=== PATIENT | female | born 1960 | race Caucasian/White ===

== ENCOUNTER 2023-09-10 00:56 | Day surgery (SDC) | payer OTHER, SELFPAY ==
[2023-08-28 13:05] VITALS: BMI 27.2
--- NOTE | 2023-09-08 09:52 | SUR.PREOP ---
Patient called regarding upcoming procedure. Message left regarding preop instructions, appointment times, and procedure prep. Call back number left in message.
[2023-09-10 06:08] VITALS: BMI 28.4
[2023-09-10 06:15] VITALS: BP 129/74; PULSE 74; RESP 16; TEMP 36.3; O2SAT 100
[2023-09-10] MEDS: LACTATED RINGERS 1,000 ML 150 ML IV CONT (06:38)
--- NOTE | 2023-09-10 07:14 | WPDANESEPPF ---
Anes - Initial Pre Proc Eval Procedure: Operation Date: 09/10/23 07:30 Proposed Procedures p Screening Colonoscopy - Nick De Santiago MD Date/Time: 09/10/23 07:14 Surgeon: Nick De Santiago MD Pre Op Diagnosis: neoplasm screening Patient Data Age: 62 Gender: F Height: 1.63 m Weight: 75.2 kg Last Vital Signs Temp 36.3 C L 09/10/23 06:15 Pulse 74 09/10/23 06:15 Resp 16 09/10/23 06:15 BP 129/74 09/10/23 06:15 Pulse Ox 100 09/10/23 06:15 O2 Del Method Room Air 09/10/23 06:15 Allergies Allergy/AdvReac Type Severity Reaction Status Date / Time Penicillins Allergy Unknown Unknown Verified 09/10/23 06:19 Home Medications Medication Instructions Recorded Confirmed Type estradiol 0.5 mg tablet (Estrace) 0.5 mg PO DAILY #100 tabs 08/24/23 09/10/23 Rx Patient hx anesthesia problems: none Family hx anesthesia problems: none Results Review: All pre-operative results and documents have been reviewed as part of the pre-operative evaluation. [facility] Past Medical History Medical History Anemia, unspecified Overweight Surgical History Surgical History H/O: hysterectomy 2019 Family History Family History Father Depression Family history of cardiovascular disease Acute myocardial infarction Sibling Hypertension Family history of elevated blood lipids Mother Family history of rheumatoid arthritis Grandparent Family history of malignant neoplasm Other Family history of hypercholesterolemia Social History Social History Smoking status: Never smoker Alcohol intake: current Drinks per week: 4 Living arrangements: with family Spiritual care concerns: No Anes - Eval Final PreProcedure Day of Procedure 09/10/23 07:14 Patient weight: overweight Heart: regular rate and rhythm Lungs: clear to auscultation Airway: Mallampati scale class II Neurological: alert and oriented Last oral intake: >/= 8 hours ASA classification: II Emergent: no Anesthetic plan: proceed Anesthesia type and monitoring: general GIVS and standard monitoring Results Review: All pre-operative results and documents have been reviewed as part of the pre-operative evaluation. Informed Consent: The patient's anesthetic plan and its attendant risks and benefits were discussed with the patient/family/POA. Questions were solicited and answers provided to the satisfaction of the patient/family/POA.
--- NOTE | 2023-09-10 07:46 | PM.HPGS ---
History of Present Illness History of Present Illness Consent: Risks, benefits, and alternatives have been discussed and questions answered. Patient agrees to proceed with procedure. Chief complaint: neoplasm screening Narrative: Mari Oliver is a 62 year old female Presents for screening colonoscopy. Patient's current weight appetite and bowel movements are normal. Patient denies abdominal pain. she has had no bleeding. Patient's previous colonoscopy 10 years ago was unremarkable. Review of Systems Review of Systems: Review of systems noncontributory. [facility] Past Medical History Medical History Anemia, unspecified Overweight Surgical History Surgical History H/O: hysterectomy 2018 Family History Family History Father Depression Family history of cardiovascular disease Acute myocardial infarction Sibling Hypertension Family history of elevated blood lipids Mother Family history of rheumatoid arthritis Grandparent Family history of malignant neoplasm Other Family history of hypercholesterolemia Social History Social History Smoking status: Never smoker Alcohol intake: current Drinks per week: 4 Living arrangements: with family Spiritual care concerns: No Meds Home Medications and Allergies Home Medications Medication Instructions Recorded Confirmed Type estradiol 0.5 mg tablet (Estrace) 0.5 mg PO DAILY #100 tabs 08/24/23 09/10/23 Rx Allergies Allergy/AdvReac Type Severity Reaction Status Date / Time Penicillins Allergy Unknown Unknown Verified 09/10/23 06:19 Vital Signs Vital Signs - 24 hr 09/10/23 06:15 Temperature 97.4 F L Pulse Rate 74 Respiratory Rate 16 Blood Pressure 129/74 Pulse Oximetry 100 Oxygen Delivery Room Air Exam Narrative: Physical exam reveals patient to be alert. Vital signs stable. HEENT exam is unremarkable. Patient is anicteric. Lungs are clear to auscultation and percussion. Heart is without murmur or extra sounds. Abdominal exam bowel sounds are present soft nontender with no organomegaly. Digital external rectal exam normal. Assessment and Plan Assessment and plan (1) Encounter for screening colonoscopy: Code(s): Z12.11 - Encounter for screening for malignant neoplasm of colon Status: Acute Assessment and Plan: Patient appears be at average risk for colon polyps. Further recommendations may be given after colonoscopy.
[2023-09-10 07:50] VITALS: BP 109/70; PULSE 76; RESP 20; O2SAT 99
[2023-09-10 08:00] VITALS: BP 113/79; PULSE 82; RESP 20; O2SAT 100
[2023-09-10 08:10] VITALS: BP 116/80; PULSE 78; RESP 18; O2SAT 100
== END 2023-09-10 08:15 | disposition home or self-care (01) ==
PROVIDERS: PCP Emergency Medicine; Visit Provider Internal Medicine Gastroenterology
PROC: 0DJD8ZZ Inspection of Lower Intestinal Tract, Via Natural or Artificial Opening Endoscopic (ICD-10-PCS; CPT 45378; principal; 2023-09-10 07:30)
DX: Z12.11 Encounter for screening for malignant neoplasm of colon (principal); K64.8 Other hemorrhoids; D64.9 Anemia, unspecified; Z82.49 Family history of ischemic heart disease and other diseases of the circulatory system; Z80.9 Family history of malignant neoplasm, unspecified
CPT/HCPCS: 45378; J2704; J7120

== ENCOUNTER 2023-11-04 07:46 | Outpatient (CLI) | payer OTHER, SELFPAY ==
--- NOTE | ~2023-11-04 | DEXA_ITS ---
Bone Density Report Name: BREE BRAR Age: 63 Sex: Female Ethnicity: White Date of : 1960 Indication: postmenopausal; screening for osteoporosis; parental hip fracture; height loss; prior fracture; hysterectomy; Referring Provider: JOSE ANTONIO TOWNSEND Study: Bone densitometry was performed. Exam Date: November 04, 2023 Accession number: [id number] Bone Density: Region BMD T-score Z-score Classification AP Spine(L1-L4) 1.131 0.8 2.5 Normal Femoral Neck (Left) 0.744 -0.9 0.6 Normal Total Hip (Left) 0.869 -0.6 0.6 Normal Femoral Neck (Right) 0.786 -0.6 0.9 Normal Total Hip (Right) 0.909 -0.3 1.0 Normal Total Hip Mean 0.889 -0.5 0.8 Normal World Health Organization criteria for BMD impression classify patients as: Normal (T-score at or above -1.0), Osteopenia (T-score between -1.0 and -2.5), or Osteoporosis (T-score at or below -2.5). 10-year Fracture Risk: FRAX not reported because: All T-scores for Spine Total, Hip Total, Femoral Neck at or above -1.0 Clinical Information Provided by Patient: Has had a low trauma fracture Parent has had a hip fracture Has the following medical conditions: Hysterectomy Patient maximum height was 65.0 Menopause Age: 53 No regular weight bearing exercise Drinks caffeinated beverages Onset of menses at age 11 Number of children 2 Impression: The patient has normal bone mass. The patient has risk factors, including: parental hip fracture, previous fracture. Discussion: BONE DENSITY IS ABOVE THE MINIMUM DESIRABLE LEVEL AT ALL SKELETAL SITES TESTED. This patient?s bone mineral density is above the minimum desirable level (T-score -1.0 or better) at all sites measured. The patient should follow a healthful lifestyle (good nutrition with adequate calcium and vitamin D, and appropriate weight-bearing exercise). Follow-Up: Consider repeating this study in 5 years or sooner if there is some new clinical indication. Reported by: [facility] on 11/04/2023 8:31:00 AM. Reviewed, dictated and finalized at location AGato WILSON
--- NOTE | ~2023-11-04 | MM_ITS ---
EXAMINATION: MM screening [facility] BI w dinorah HISTORY: Screening mammogram TECHNIQUE: Craniocaudal and mediolateral oblique 3-D tomosynthesis images were obtained and synthetic 2-D images were generated. CAD analysis was submitted and interpreted. COMPARISON: 08/17/2017, 02/10/2013, 05/09/2009 BREAST PARENCHYMAL COMPOSITION: The breasts are heterogeneously dense, which may obscure small masses . FINDINGS: No suspicious mass, calcification, or architectural distortion are identified in either kathy ast to suggest malignancy. There has been no suspicious interval change. IMPRESSION: 1. No mammographic evidence of malignancy. 2. Recommend routine screening mammography in one year. BI-RADS Category 1: Negative Reviewed, dictated and finalized at location A. F DEVELOPMENT OFFICER
== END 2023-11-04 07:47 | disposition home or self-care (01) ==
LOC: ANHIMG 07:48
PROVIDERS: PCP Emergency Medicine; Visit Provider Nurse Practitioner Family
DX: Z12.31 Encounter for screening mammogram for malignant neoplasm of breast (principal); Z13.820 Encounter for screening for osteoporosis
CPT/HCPCS: 77063; 77067; 77080

== ENCOUNTER 2024-02-03 12:39 | Outpatient (CLI) | payer OTHER, SELFPAY | END 2024-02-03 12:40 | disposition home or self-care (01) | LOC: ANHAUDASC 12:42 | PROVIDERS: PCP Emergency Medicine; Visit Provider Otolaryngology | DX: H73.811 Atrophic flaccid tympanic membrane, right ear (principal); H90.42 Sensorineural hearing loss, unilateral, left ear, with unrestricted hearing on the contralateral side | CPT/HCPCS: 92557; 92567 ==

== ENCOUNTER 2025-07-04 10:17 | Outpatient (CLI) | payer OTHER, SELFPAY ==
--- NOTE | ~2025-07-04 | MM_ITS ---
EXAMINATION: MM screening [facility] BI w dinorah HISTORY: Screening mammogram TECHNIQUE: Craniocaudal and mediolateral oblique 3-D tomosynthesis images were obtained and synthetic 2-D images were generated. CAD analysis was submitted and interpreted. COMPARISON: Mammograms from 11/04/2023 and 08/17/2017 BREAST PARENCHYMAL COMPOSITION: The breasts are heterogeneously dense, which may obscure small masses. FINDINGS: RIGHT BREAST: There is no evidence of suspicious mass, calcification, or architectural distortion to suggest malignancy. There has been no significant interval change. LEFT BREAST: Interval increase in the number of indeterminate calcifications in the upper outer quadrant of the left breast, posterior depth. No suspicious mass or architectural distortion. IMPRESSION: 1. Interval increase in number of indeterminate calcifications in the upper- outer quadrant of the left breast, posterior depth. This study is incomplete. A diagnostic left breast mammogram is recommended. 2. No mammographic evidence for malignancy in the right breast. BI-RADS Category 0: Incomplete: Needs additional imaging evaluation. Reviewed, dictated and finalized at location Q. IMPRESSION: 1. Interval increase in number of indeterminate calcifications in the upper-out er quadrant of the left breast, posterior depth. This study is incomplete. A di agnostic left breast mammogram is recommended. 2. No mammographic evidence for malignancy in the right breast. BI-RADS Category 0: Incomplete: Needs additional imaging evaluation.
== END 2025-07-04 10:18 | disposition home or self-care (01) ==
PROVIDERS: PCP Family Medicine; Visit Provider Family Medicine
DX: R92.8 Other abnormal and inconclusive findings on diagnostic imaging of breast (principal); Z12.31 Encounter for screening mammogram for malignant neoplasm of breast
CPT/HCPCS: 77063; 77067

== ENCOUNTER 2025-07-04 10:54 | Outpatient (CLI) | payer OTHER, SELFPAY ==
--- NOTE | ~2025-07-04 | XR_ITS ---
XR knee RT 3V 07/04/2025 11:08 Indication: Right knee pain Procedure: 3 views right knee Comparison: No prior studies for comparison. Findings: There is mild-moderate tricompartment osteoarthritis of the right knee. No acute fracture, subluxation or dislocation. No significant joint effusion. Impression: 1: Mild-moderate tricompartment osteoarthritis of the right knee. Reviewed, dictated and finalized at location O. Impression: 1: Mild-moderate tricompartment osteoarthritis of the right knee.
== END 2025-07-04 10:55 | disposition home or self-care (01) ==
LOC: MICIMG 10:55
PROVIDERS: PCP Family Medicine; Visit Provider Family Medicine
DX: M17.11 Unilateral primary osteoarthritis, right knee (principal)
CPT/HCPCS: 73562

== ENCOUNTER 2025-08-07 12:03 | Outpatient (CLI) | payer OTHER, SELFPAY ==
--- NOTE | ~2025-08-07 | MM_ITS ---
EXAMINATION: MM diagnostic [facility] LT w dinorah INDICATION: 64-year old female; BI-RADS 0, callback from screening to evaluate interval increasing indeterminate calcifications in the upper outer left breast at posterior depth. COMPARISON: 07/04/2025 through 05/09/2009 TECHNIQUE: Digital breast magnification CC and ML views of LEFT breast were obtained. FINDINGS: The breasts are heterogeneously dense, which may obscure small masses. A linear group of pleomorphic microcalcifications that spans 0.4 cm seen in superior lateral in the posterior third of the LEFT breast correlates to the area of concern. There are several other calcifications seen in the same general area of the benign microcyst type calcifications. IMPRESSION: Suspicious LEFT breast calcifications in the superior lateral location. Biopsy is recommended. RECOMMENDATION: Stereotactic biopsy of superior lateral LEFT breast calcifications. BI-RADS 4, SUSPICIOUS Reviewed, dictated and finalized at location B. IMPRESSION: Suspicious LEFT breast calcifications in the superior lateral locat ion. Biopsy is recommended. RECOMMENDATION: Stereotactic biopsy of superior lateral LEFT breast calcifications. BI-RADS 4, SUSPICIOUS
== END 2025-08-07 12:04 | disposition home or self-care (01) ==
LOC: ANHFOHIMG 12:04
PROVIDERS: PCP Family Medicine; Visit Provider Family Medicine
DX: R92.1 Mammographic calcification found on diagnostic imaging of breast (principal); Q83.9 Congenital malformation of breast, unspecified
CPT/HCPCS: 77061; 77065; G0279

== ENCOUNTER 2025-08-11 08:42 | Outpatient (CLI) | payer OTHER, SELFPAY ==
--- NOTE | ~2025-08-11 | MM_ITS ---
AutoText: MM stereotactic bx LT, MM stereotactic specimen LT CLINICAL HISTORY: 64-year-old female with suspicious left breast calcifications or presents for stereotactic core needle biopsy procedure. PROCEDURE: Stereotactic breast biopsy. The patient was brought into the stereotactic suite. A time-out procedure was performed. Preliminary images of the left breast were obtained to localize the calcifications. The area was then prepped and draped in the usual sterile fashion. 1% lidocaine was administered to the superficial soft tissues and 1% lidocaine without epinephrine was administered to the deeper soft tissues for local anesthesia. A juli was made in the skin and the 9 gauge Brevera biopsy needle was inserted through the juli and localized to the calcifications with confirmation by mammography. Multiple biopsy specimens were obtained. Images of the biopsy specimens demonstrate numerous calcifications corresponding with the suspicious calcifications seen on the mammogram. A butterfly Crosby Nick was placed in the biopsy site at the end of the procedure. Pressure was held at the site of biopsy and entry site for the needle until hemostasis was achieved. The patient tolerated the procedure well with no immediate post procedure complications. The biopsy specimens were sent to pathology for evaluation. Mammograms of the left breast in the craniocaudal and true lateral projections demonstrate the microclip in good position in the biopsy site. IMPRESSION: Technically successful stereotactic biopsy of left breast calcifications. The patient tolerated the procedure well with no immediate post procedure complications. Pathology report is pending. Reviewed, dictated and finalized at location B. IMPRESSION: Technically successful stereotactic biopsy of left breast calcifica tions. The patient tolerated the procedure well with no immediate post procedur e complications. Pathology report is pending.
--- NOTE | 2025-08-11 10:49 | S_PTH ---
PATIENT: Mari Oliver LOC: [facility] U#:[id number] AGE/SX: 64/F ROOM: RE08/11/[address]: Lachelle Mejia MD : 1960 BED: DIS: 08/11/2025 SPEC #: [id number] RECD: 08/11/25 11:42 STATUS: DAVIE KRUSE #: [id number] BRAD: 08/11/25 10:[address]: Lachelle Mejia DEPT: [facility] Surgical RECD BY: Kathryn Mandujano ENTERED: 08/11/25 12:00 SP TYPE: Surgical OTHR DR: Ludin Zayas MD Tissues: A - Breast Biopsy B - Breast Biopsy C - Breast Biopsy D - Breast Biopsy E - Breast Biopsy F - Breast Biopsy G - Breast Biopsy H - Breast Biopsy I - Breast Biopsy J - Breast Biopsy K - Breast Biopsy L - Breast Biopsy Procedures: P63 Hematoxylin and Eosin Stain E-Cadherin Gross and Microscopic Level 4
== END 2025-08-11 08:43 | disposition home or self-care (01) ==
PROVIDERS: PCP Family Medicine; Visit Provider Surgery
DX: R92.1 Mammographic calcification found on diagnostic imaging of breast (principal); R92.8 Other abnormal and inconclusive findings on diagnostic imaging of breast; N62 Hypertrophy of breast
CPT/HCPCS: 19081; 88305; 88342

== ENCOUNTER 2025-08-27 13:45 | Emergency (ER) | payer OTHER, SELFPAY ==
[2025-08-27 13:52] VITALS: BP 137/79; PULSE 79; RESP 16; TEMP 36.3; O2SAT 100
--- NOTE | 2025-08-27 13:52 | ED.GENADULT ---
HPI - General Adult General Chief complaint: Upper Respiratory Infection Stated complaint: Cold Symptoms Time Seen by Provider: 08/27/25 13:53 Source: patient Mode of arrival: ambulatory Limitations: no limitations Related Data Allergies Allergy/AdvReac Type Severity Reaction Status Date / Time No Known Allergies Allergy Verified 08/09/25 07:57 Review of Systems Review of Systems: CONSTITUTIONAL: Denies fever, chills, or sweats. EYES: Denies visual changes, redness, or discharge. ENT: Denies rhinorrhea, congestion, sore throat, or otalgia. CARDIOVASCULAR: Denies chest pain, palpitations, or edema. RESPIRATORY: Denies cough or dyspnea. GASTROINTESTINAL: Denies abdominal pain, nausea, vomiting, or diarrhea. GENITOURINARY: Denies dysuria or hematuria. SKIN: Denies rash or itching. MUSCULOSKELETAL: Denies back pain, joint pain, or myalgia. NEUROLOGIC: Denies headache, numbness, or weakness. PSYCHIATRIC: Denies anxiety or depression. [facility] Past Medical History Medical History Overweight Anemia, unspecified Surgical History Surgical History H/O: hysterectomy 2019 Family History Family History Father Depression Family history of cardiovascular disease Acute myocardial infarction Sibling Hypertension Family history of elevated blood lipids Mother Family history of rheumatoid arthritis Grandparent Family history of malignant neoplasm Other Family history of hypercholesterolemia Social History Social History Social History: Caffeine-diet soda Smoking status: Former smoker Tobacco type: cigarettes Alcohol intake: current Drinks per week: 4 Substance use: never Substance use type: does not use Do You Feel Safe in your Home?: Yes Lack of Transportation: No Lack of Food: Never True Current Housing: I Have Housing Concerned About Future Housing: No Difficulty Paying Gas/Electric Bills: No Difficulty Paying for Meds: No Currently Unemployed: No Education: Master's Degree or Higher Difficulty w/ Childcare or Family Care: No Living arrangements: with family Spiritual care concerns: No Comments At the time of my signature I agree with nursing past medical history, surgical, social, and family history. There is no relevant family history pertinent to the presenting complaint. Exam Narrative: GENERAL: Well-appearing, well-nourished, and in no acute distress. HEAD: Normocephalic, atraumatic. EYES: PERRLA and EOMI. ENT: Nares clear, no rhinorrhea or epistaxis. Mucous membranes moist. NECK: Supple. No lymphadenopathy CHEST: Clear to auscultation. No respiratory distress. HEART: Regular rate and rhythm. No murmur heard. Normal peripheral pulses. ABDOMEN: Soft, nontender, nondistended, normal active bowel sounds. EXTREMITIES: Normal range of motion. No edema. SKIN: Warm, dry, no rash. NEURO: No focal deficits. Alert and oriented x3. Course Course Level of Care: Express Care Visit Reevaluation(s) Reevaluation #1: Re-evaluated patient after point of care I would come back showing negative results for COVID, influenza and strep. Discussed with patient we will sign off her strep swab to the lab for culture. If anything comes back positive we will call her antibiotics at that time. Discussed with patient this is most likely viral URI and she can you take nuhe-ldj-[id number] medications help with symptoms she can also increase her vitamin such as vitamin-C, vitamin D and increase her zinc to help her fight the virus better. Discussed with patient she can also use hot tea and honey to help sore throat symptoms. Patient verbalized understanding denies any other questions or concerns at this time. Date: 08/27/25 Time: 14:31 Vital Signs Vital signs: Vital Signs Temperature 36.3 C L 08/27/25 13:52 Pulse Rate 79 08/27/25 13:52 Respiratory Rate 16 08/27/25 13:52 Blood Pressure 137/79 08/27/25 13:52 Pulse Oximetry 100 08/27/25 13:52 Temperature 36.3 C L 08/27/25 13:52 Pulse Rate 79 08/27/25 13:52 Respiratory Rate 16 08/27/25 13:52 Blood Pressure 137/79 08/27/25 13:52 Pulse Oximetry 100 08/27/25 13:52 Vital signs reviewed. Medical Decision Making Differential Diagnosis Differential Diagnosis: Differential diagnosis: Allergic rhinitis, chronic sinusitis, tonsillitis, acute sinusitis, infectious mononucleosis, seasonal influenza, pertussis, diphtheria, meningococcal disease, viral syndrome, viral bronchitis, RSV, COVID-19 Vital Signs Vital Signs: Vital Signs Temperature 36.3 C L 08/27/25 13:52 Pulse Rate 79 08/27/25 13:52 Respiratory Rate 16 08/27/25 13:52 Blood Pressure 137/79 08/27/25 13:52 Pulse Oximetry 100 08/27/25 13:52 Temperature 36.3 C L 08/27/25 13:52 Pulse Rate 79 08/27/25 13:52 Respiratory Rate 16 08/27/25 13:52 Blood Pressure 137/79 08/27/25 13:52 Pulse Oximetry 100 08/27/25 13:52 Lab Data Labs: Lab Results 08/27/25 Range/Units 14:26 POC Influenza A Ag Negative (Negative) POC Influenza B Ag Negative (Negative) POC SARS CoV-2 Ag Negative (Negative) POC Grp A Strep Screen Negative (Negative) Critical Care Time Critical Care Time Critical Care Time: No Discharge Plan Discharge Clinical Impression: Viral URI Patient Disposition: Home Condition: Stable Instructions: Antibiotic Form, Viral Syndrome (ED) Additional Instructions: Viral illness may last between 7-12days; antibiotic is NOT recommended at this time. Recommend antihistamine such as Benadryl at night time and Claritin/Zyrtec/Fior during the day may want to increase vitamin C to 4000 mg a day, 2000 mg in the a.m. and 2000 mg in the p.m. until we start to feel better May also use [id number] IU of vitamin-D and 40-50 mg of zinc for 4-5 days until feeling better. May use honey for sore throat cough along with hot tea that may help with the sore throat symptoms. Cough syrup may cause drowsiness; avoid driving or take it at night time. Also, recommend symptomatic treatment includes: rest, fluids, and increase humidity of the air at home. Recommend Acetaminophen or nonsteroidal anti-inflammatory agents (NSAIDs) as directed in the bottle to reduce fever and/pain/headache. Avoid smoking/second-hand smoke. Limit visits to areas with large crowds. Please schedule a follow-up visit with your personal physician for further evaluation and treatment within 3-5days. Including recheck and discussion of your blood pressure. If your symptoms persist, change or worsen significantly before you can contact your personal physician then please, without delay, go to the emergency department for further evaluation. Patient Language: Greenlandic Prescriptions: No Action estradiol 0.5 mg tablet See Rx Instructions .ROUTE .COMPLEX Qty: 90 3RF Dose Instruction: TAKE 1 TABLET DAILY Rx Instructions: TAKE 1 TABLET DAILY Follow-up/Referrals: Ludin Zayas MD [Primary Care Provider, [facility]] Time of Disposition: 14:30
[2025-08-27 14:28] LABS: EDCOVIDSCREEN Negative (Negative); EDINFLUASCREEN Negative (Negative); EDINFLUBSCREEN Negative (Negative); EDSTREPNEGPOS1 Negative (Negative)
== END 2025-08-27 14:36 | disposition home or self-care (01) ==
PROVIDERS: Emergency Provider Nurse Practitioner Family; PCP Family Medicine
DX: J06.9 Acute upper respiratory infection, unspecified (principal); Z20.822 Contact with and (suspected) exposure to COVID-19; Z87.891 Personal history of nicotine dependence
CPT/HCPCS: 87081; 87426; 87804; 87880; 99213; G0463

== ENCOUNTER 2025-10-03 07:58 | Outpatient (CLI) | payer OTHER, SELFPAY ==
--- NOTE | ~2025-10-03 | US_ITS ---
PROCEDURE(S): US breast LT limited INDICATION(S): [facility] moved to [facility] COMPARISON(S): Studies dating back to July 04 TECHNIQUE: Grayscale and color Doppler imaging. FINDINGS: Sonography through the 1 to 2:00 position demonstrates a fluid collection. There is an echogenic structure in the fluid collection. It does not show acoustic shadowing. It is uncertain if this represents the biopsy marker. IMPRESSION: It was uncertain if the relatively echogenic structure in this fluid collection represented the biopsy marker. The decision was made to perform D. Hina localization procedure with mammography guidance. BI-RADS 6 - known, biopsy-proven malignancy. Reviewed, dictated and finalized at location B. CAL SOCIAL WORKER IMPRESSION: It was uncertain if the relatively echogenic structure in this fluid collection represented the biopsy marker. The decision was made to perform D. Hina local ization procedure with mammography guidance. BI-RADS 6 - known, biopsy-proven malignancy.
--- NOTE | ~2025-10-03 | MM_ITS ---
PROCEDURE(S): MM_MAGSEEDLT_MG INDICATION(S): MAGSEED PLACEMENT COMPARISON(S): Studies dating back to July 04 TECHNIQUE/FINDINGS: Informed consent was obtained. Under sterile conditions, 1% lidocaine was injected as local anesthetic. With mammographic-guidance, a Magseed device is place in/adjacent to the finding/biopsy marker in question. Postprocedural imaging demonstrates the Magseed to lie in the expected location. No complications occurred. The patient tolerated the procedure well. IMPRESSION: Status post successful preoperative Magseed device placement. Reviewed, dictated and finalized at location B. R SHOP SUPERINTENDENT
== END 2025-10-03 07:59 | disposition home or self-care (01) ==
PROVIDERS: PCP Family Medicine; Visit Provider Surgery
DX: N60.92 Unspecified benign mammary dysplasia of left breast (principal)
CPT/HCPCS: 19281; 76642; A4648

== ENCOUNTER 2025-10-11 01:49 | Day surgery (SDC) | payer OTHER, SELFPAY ==
[2025-09-27 08:14] VITALS: BMI 29.1
--- NOTE | 2025-09-27 08:25 | PC.NURSE ---
[facility] has started construction of its new state of the art ER which will open Spring 2026. With this, we anticipate parking may be a challenge for some our surgical patients and families. Parking spaces are limited but are available for all Surgical, obstetrics, and ER patients sharing this lot. If you arrive and find you are having a hard time finding a parking space, please note that we understand the challenges, please drive around the hospital and park near Hospital Entrance 1. When you enter this entrance, you can ask a volunteer to direct or take you back to the surgical waiting area to check in. We appreciate everyone?s understanding of these expected challenges while we build for your future. Report to the Outpatient Waiting Room, entrance under the green pavilion located off [address], at time ___06:00am____ on date __10/11/25 . Planned Procedure Time: _07:30am .? Time changes happen often and if your time is changed the preop area will call you the afternoon before. - You and your visitor will be asked to self-screen and do not enter if you have any COVID symptoms. Please call surgeon if you need to reschedule. - A mask is optional within the hospital at this time. Patients may have clear liquids (water, carbonated beverages, clear teas, apple juice) until 3 hours prior to surgery with a maximum of 20 ounces. - No food from midnight until time of surgery and no smoking, or chewing tobacco (or any form of nicotine). No chewing gum, candy or mints. (04:30am) Take only the following medications with a SIP of water on the morning of surgery: ___NONE DO NOT STOP ANY OF YOUR OTHER PRESCRIPTION MEDICATIONS PRIOR TO SURGERY EXCEPT THE FOLLOWING Hold all vitamins and supplements for 3 days per anesthesiologist. Date of last dose dose 10/07/25 Medications to discontinue per physician NONE Date to take last dose___NONE Please no make-up, nail czech, hairspray, perfume, deodorant, or body powder the day of surgery.? No jewelry (including any body piercings) or valuables the day of surgery, leave them at home.? Please take a shower or bath the night before, or the morning of, surgery with an antibacterial soap.? Dial Soap.Wear comfortable, loose fitting clothing.? Children are encouraged to wear pajamas. - Jewelry must be removed prior to entering the operating room.? Rings and piercings that are not removed may be cut off. - The hospital will not accept responsibility for valuables.? - Please leave all valuables, including medications, at home the day of surgery. If you are going home after surgery, a licensed motorcoach driver must drive you home.? - NO public transportation without another adult if you receive anesthesia. - We recommend that an adult stay with you for 24 hours following discharge. - We also recommend that you do not drive, make important decision, drink alcoholic beverages, or take any drugs that were not prescribed by your health care provider for at least 24 hours after your discharge time. Follow any additional instructions given to you from your surgeon. Telephone instructions given to ____Patient and asked if any additional questions and then verbalized understanding. Patient advised to call surgeon office or pre surgery nurse liaison [phone] if any additional questions.
[2025-10-11] VITALS (7 sets, daily range): BP systolic 118–143; BP diastolic 58–75; PULSE 63–84; RESP 14–18; TEMP 36.1–36.3; O2SAT 100; BMI 29.3
--- NOTE | ~2025-10-11 | MM_ITS ---
PROCEDURE(S): MM_FAXITRON_MG INDICATION(S): left breast lumpectomy COMPARISON(S): Studies dating back to July 04 TECHNIQUE: Single radiographic image FINDINGS: The biopsy marker, the Magseed, and residual calcifications are seen in the specimen. IMPRESSION: Successful surgical excision of the area in question. Reviewed, dictated and finalized at location C. ING APPRENTICE
--- OUTSIDE RECORDS SUMMARY | 2025-10-11 01:52 | XMS_ITS ---
Author Organization Unknown ENCOUNTERS Encounter Performer Location Date Diagnosis Diagnosis Status Outpatient [facility] [address] [place] [address] [id number] Outpatient [facility] [address] [place] [address] [id number] [place] Outpatient [facility] [address] [place] [address] [id number] [place] Outpatient [facility] [address] [place] [address] [id number] [place] Outpatient [facility] [address] [place] [address] [id number] [place] Outpatient Eris Veloz [facility] [address] [place] [address] [id number] [place] Outpatient Tamara Harper [facility] [address] [place] [address] [id number] [place] Outpatient Nick De Santiago [facility] [address] [place] [address] [id number] [place] *Note: Encounters from your own facility or health system may be excluded. Allergies, Adverse Reactions, Alerts Allergen Type Severity Identification Date Penicillins drug allergy 3 [id number] Medications Name Date Quantity Days Supplied [facility] Number
[2025-10-11] MEDS: LACTATED RINGERS 1,000 ML 30 ML IV CONT ×3 (06:35→08:57)
[2025-10-11] MEDS: ACETAMINOPHEN 500 MG TABLET 1000 MG PO (06:40)
--- NOTE | 2025-10-11 07:07 | WPDHPUPDATE1 ---
History and Physical Update Update Date/Time: 10/11/25 07:07 - Left breast lumpectomy with Mag seed localization and possible adjacent tissue transfer. History and Physical has been reviewed, including an updated exam of the patient. There are NO changes in the patient's condition. Risks, benefits, and alternatives have been discussed and questions answered. Patient agrees to proceed with procedure.
[2025-10-11] MEDS: ceFAZolin 2 GM in SODIUM CHLORIDE 0.9% IV 50 ML 100 ML IVPB (07:21)
--- NOTE | 2025-10-11 07:21 | WPDANESEPPF ---
Anes - Initial Pre Proc Eval Procedure: Operation Date: 10/11/25 07:30 Proposed Procedures p Left Breast Lumpectomy with Mag Seed Localization, Possible Adjacent Tissue Transfer - Lachelle Mejia MD Date/Time: 10/11/25 07:21 Surgeon: Lachelle Mejia MD Pre Op Diagnosis: unspec benign mammary dysplasia left breast Patient Data Age: 64 Gender: F Height: 1.63 m Weight: 77.5 kg Last Vital Signs Temp 36.3 C L 10/11/25 06:06 Pulse 80 10/11/25 06:06 Resp 14 10/11/25 06:06 BP 118/74 10/11/25 06:06 Pulse Ox 100 10/11/25 06:06 O2 Del Method Room Air 10/11/25 06:06 Allergies Allergy/AdvReac Type Severity Reaction Status Date / Time No Known Allergies Allergy Verified 10/11/25 06:43 Home Medications ?Medication ?Instructions ?Recorded ?Confirmed ?Type estradiol 0.5 mg tablet See Rx Instructions .Route 06/09/25 10/11/25 Rx .COMPLEX #90 tabs multivitamin with minerals-folic 1 tablet PO DAILY 09/27/25 10/11/25 History acid 12 mcg chewable tablet (Centrum Adults) Patient hx anesthesia problems: none Family hx anesthesia problems: none Results Review: All pre-operative results and documents have been reviewed as part of the pre-operative evaluation. [facility] Past Medical History Medical History Overweight Anemia, unspecified Surgical History Surgical History H/O: hysterectomy 2019 Family History Family History Father Depression Family history of cardiovascular disease Acute myocardial infarction Sibling Hypertension Family history of elevated blood lipids Mother Family history of rheumatoid arthritis Grandparent Family history of malignant neoplasm Other Family history of hypercholesterolemia Social History Social History Social History: Caffeine-diet soda Years smoked: 20 Smoking status: Former smoker Tobacco type: cigarettes Smoking end date: 11/02/04 Additional smoking assessment comments: denies nicotine Alcohol intake: current Drinks per week: 2 Substance use: never Substance use type: does not use Lack of Transportation: No Lack of Food: Never True Current Housing: I Have Housing Concerned About Future Housing: No Difficulty Paying Gas/Electric Bills: No Difficulty Paying for Meds: No Currently Unemployed: No Education: Master's Degree or Higher Difficulty w/ Childcare or Family Care: No Living arrangements: with family Additional living arrangements comments: Spiritual care concerns: No Anes - Eval Final PreProcedure Day of Procedure 10/11/25 07:21 Patient weight: overweight Heart: regular rate and rhythm Lungs: clear to auscultation Airway: Mallampati scale class II Neurological: alert and oriented Last oral intake: >/= 8 hours ASA classification: II Emergent: no Anesthetic plan: proceed Anesthesia type and monitoring: general LMA and standard monitoring Results Review: All pre-operative results and documents have been reviewed as part of the pre-operative evaluation. Informed Consent: The patient's anesthetic plan and its attendant risks and benefits were discussed with the patient/family/POA. Questions were solicited and answers provided to the satisfaction of the patient/family/POA.
--- NOTE | 2025-10-11 08:28 | S_PTH ---
PATIENT: Mari Oliver LOC: [facility] U#:[id number] AGE/SX: 64/F ROOM: RE10/11/[address]: Lachelle Mejia MD : 1960 BED: DIS: 10/11/2025 SPEC #: [id number] RECD: 10/11/25 08:44 STATUS: DAVIE REIraj #: [id number] BRAD: 10/11/25 08:[address]: Lachelle Mejia DEPT: [facility] Surgical RECD BY: Cande Zapata MLT, ([facility]) ENTERED: 10/11/25 08:44 SP TYPE: Surgical OTHR DR: Ludin Zayas MD Tissues: A - Breast Lumpectomy Procedures: Hematoxylin and Eosin Stain Gross and Microscopic Level 5
--- NOTE | 2025-10-11 08:47 | W.PM.PROC2 ---
Procedure Note - Detailed Date of Procedure 10/11/25 Pre-op Diagnosis Left breast atypical lobular hyperplasia Post-op Diagnosis Same Procedure Performed Left breast lumpectomy with magseed localization Surgeon Lachelle Mejia MD Anesthesia MAC Description of Procedure Patient was identified in the pre-operative area and brought to the OR suite. She underwent tumor localization previously by IR with magseed placement. She was laid supine in the operating table and sequential compression devices were applied. General anesthesia was induced without difficulties. The left chest was prepped and draped in a sterile fashion. The sentimag probe was used to identify the area where the magseed was placed and a superior periareolar incision was made. Dissection was carried down through the subcutaneous tissue into the breast tissue. The area of concern was identified using sentimag probe, and a rim of normal breast tissue was excised along with the magseed and biopsy clip as our lumpectomy specimen. Once the specimen was completely excised, it was oriented using surgical paint according to light rail vehicle operator instructions. The specimen was placed in the faxitron and 2 radiographs were obtained and sent to Radiology for radiographic confirmation of biopsy marker and magseed within the center of specimen. Once the radiographic confirmation was received, the wound was irrigated with saline and hemostasis was assured. The deep dermal layer was approximated using interrupted 3-0 vicryl followed by 4-0 monocryl for the skin. Dermabond was applied followed by a surgical bra. Patient was awoken from anesthesia and taken to the recovery area in stable condition. All needles, instruments and sponge counts were correct as reported by the operating room staff. Patient tolerated the procedure well with no immediate complications. Estimated Blood Loss 5 Pathology Yes Complications No immediate complications Condition Stable Disposition PACU [facility] Billing Surgery - Charge Forward: Surgery Billing (CPT 84921)
[2025-10-11] MEDS: oxyCODONE HCL (*CRX) 5 MG TAB IR PO (09:43)
== END 2025-10-11 10:33 | disposition home or self-care (01) ==
PROVIDERS: PCP Family Medicine; Visit Provider Surgery
PROC: (CPT 19301; principal; 2025-10-11 07:30)
DX: N60.02 Solitary cyst of left breast (principal); N60.12 Diffuse cystic mastopathy of left breast; N60.22 Fibroadenosis of left breast; D24.2 Benign neoplasm of left breast; D64.9 Anemia, unspecified; Z98.890 Other specified postprocedural states; Z87.891 Personal history of nicotine dependence; Z80.9 Family history of malignant neoplasm, unspecified; Z82.49 Family history of ischemic heart disease and other diseases of the circulatory system
CPT/HCPCS: 19301; 76098; 88307; J0690; A9270; J1100; J2003; J2250; J2371; J2405; J2704; J3010; J7120